=== PATIENT | male | born 1940 | race Native Hawaiian/Other Pacific Islander ===

== ENCOUNTER 2016-07-23 07:00 | Outpatient (CLI) | payer OTHER, MEDICARE ==
[~2016-07-23 07:00] MED LIST: ALEVE220 M1 OR; ASA LOW STR81 MG PO; DOXA2TAB PO; DUTA0.5C PO; FLUT0.05 NAS; LEVO0.08 PO; LOVASTATIN20 MG OR; MELOXICAM7.5 MG OR; MELOXICAM7.5 MG PO; NIASPAN500 MG PO; TRAMADL/APAP1 TAB OR
[2016-07-23 07:33] LABS: PLATELET COUNT 158 K/uL (142-355)
[2016-07-23 08:06] LABS: POTASSIUM 4.1 mmol/L (3.6-5.2); SODIUM 138 mmol/L (136-145)
== END 2016-07-23 19:04 | disposition home or self-care (01) ==
LOC: LAB 07:00
PROVIDERS: Internal Medicine
DX: Z01.818 Encounter for other preprocedural examination (principal); R74.8 Abnormal levels of other serum enzymes; R73.09 Other abnormal glucose; E03.9 Hypothyroidism, unspecified
CPT/HCPCS: 36415; 80053; 80061; 81000; 84439; 84443; 85027

== ENCOUNTER 2016-09-08 19:58 | Observation (INO) | payer OTHER, MEDICARE ==
[~2016-09-08] VITALS: Ht 177.8 cm; Wt 93.1 kg
[2016-09-08 20:11] VITALS: BP 151/79; TEMP 98.4
[2016-09-08 21:23] LABS: PLATELET COUNT 104 K/uL (142-355)
[2016-09-08 21:31] LABS: POTASSIUM 3.8 mmol/L (3.6-5.2); SODIUM 134 mmol/L (136-145)
[2016-09-08 23:20] VITALS: BP 156/80; TEMP 98.3; Ht 177.8 cm; Wt 93.1 kg
[2016-09-09 00:24] VITALS: BP 156/80; TEMP 98.3
[2016-09-09 07:59] VITALS: BP 152/81; TEMP 99.4
[2016-09-09 12:00] VITALS: BP 141/61; TEMP 98.3
== END 2016-09-09 14:12 | disposition home or self-care (01) ==
LOC: ED 19:58 → MED/SURG 22:00
PROVIDERS: ADMIT Emergency Medicine
DX: R10.84 Generalized abdominal pain (principal); R11.2 Nausea with vomiting, unspecified; K59.09 Other constipation; M17.11 Unilateral primary osteoarthritis, right knee; M25.561 Pain in right knee; M62.81 Muscle weakness (generalized)
CPT/HCPCS: 36415; 80053; 81000; 85027; 96360; 96372; 99220; 99283; G0378; J1650; J2405

== ENCOUNTER 2017-08-22 06:17 | Outpatient (CLI) | payer OTHER, MEDICARE ==
[2017-08-22 06:43] LABS: PLATELET COUNT 116 K/uL (142-355)
[2017-08-22 07:07] LABS: POTASSIUM 4.4 mmol/L (3.6-5.2)
== END 2017-08-22 21:53 | disposition home or self-care (01) ==
LOC: LABW 06:17
PROVIDERS: Physician Assistant
DX: E78.4 Other hyperlipidemia (principal); E03.8 Other specified hypothyroidism; I10 Essential (primary) hypertension; R73.09 Other abnormal glucose
CPT/HCPCS: 36415; 80053; 80061; 83036; 84439; 84443; 85027

== ENCOUNTER 2017-09-07 09:14 | Outpatient (CLI) | payer OTHER, MEDICARE | END 2017-09-07 19:26 | disposition home or self-care (01) | LOC: US 09:14 | DX: E80.6 Other disorders of bilirubin metabolism (principal) ==

== ENCOUNTER 2019-07-16 06:28 | Outpatient (CLI) | payer OTHER, MEDICARE ==
[2019-07-16 07:03] LABS: PLATELET COUNT 145 K/uL (142-355)
[2019-07-16 07:04] LABS: POTASSIUM 4.4 mmol/L (3.6-5.2)
== END 2019-07-16 19:33 | disposition home or self-care (01) ==
LOC: LAB 06:28
PROVIDERS: Internal Medicine
DX: I10 Essential (primary) hypertension (principal); E78.49 Other hyperlipidemia; E03.8 Other specified hypothyroidism
CPT/HCPCS: 36415; 80053; 80061; 81000; 84439; 84443; 85027

== ENCOUNTER 2020-02-26 06:58 | Outpatient (CLI) | payer OTHER, MEDICARE ==
[2020-02-26 08:19] LABS: POTASSIUM 4.1 mmol/L (3.6-5.2)
== END 2020-02-26 22:19 | disposition home or self-care (01) ==
LOC: LABW 06:58
PROVIDERS: Internal Medicine
DX: E03.8 Other specified hypothyroidism (principal); E78.49 Other hyperlipidemia
CPT/HCPCS: 36415; 80053; 80061; 84439; 84443

== ENCOUNTER 2020-08-31 14:19 | Outpatient (CLI) | payer OTHER, MEDICARE ==
[2020-08-31 14:44] LABS: PLATELET COUNT 109 K/uL (142-355)
[2020-08-31 15:06] LABS: POTASSIUM 4.2 mmol/L (3.6-5.2)
== END 2020-08-31 19:56 | disposition home or self-care (01) ==
LOC: LAB 14:19
PROVIDERS: ATTEND Internal Medicine
DX: Z00.00 Encounter for general adult medical examination without abnormal findings (principal); E78.49 Other hyperlipidemia; Z12.5 Encounter for screening for malignant neoplasm of prostate; E03.8 Other specified hypothyroidism; N40.0 Benign prostatic hyperplasia without lower urinary tract symptoms
CPT/HCPCS: 80053; 80061; 81000; 84153; 84439; 84443; 85027

== ENCOUNTER 2020-12-14 09:46 | Outpatient (CLI) | payer OTHER, MEDICARE | END 2020-12-14 22:39 | disposition home or self-care (01) | LOC: LABW 09:46 | PROVIDERS: ATTEND Internal Medicine | DX: B35.6 Tinea cruris (principal) | CPT/HCPCS: 36415; 80076 ==

== ENCOUNTER 2021-01-20 08:47 | Outpatient (CLI) | payer OTHER, MEDICARE ==
[2021-01-20 09:17] LABS: PLATELET COUNT 118 K/uL (142-355)
[2021-01-20 09:36] LABS: POTASSIUM 3.9 mmol/L (3.6-5.2)
== END 2021-01-20 20:34 | disposition home or self-care (01) ==
LOC: LABW 08:47
PROVIDERS: ATTEND Internal Medicine
DX: I10 Essential (primary) hypertension (principal); E03.8 Other specified hypothyroidism
CPT/HCPCS: 36415; 80053; 80061; 81000; 84439; 84443; 85027

== ENCOUNTER 2021-04-07 13:25 | Outpatient (CLI) | payer OTHER, MEDICARE | END 2021-04-07 20:25 | disposition home or self-care (01) | LOC: US 13:25 | PROVIDERS: ATTEND Internal Medicine | DX: I87.2 Venous insufficiency (chronic) (peripheral) (principal) ==

== ENCOUNTER 2021-04-22 10:07 | Emergency (ER) | payer OTHER, MEDICARE ==
[~2021-04-22] VITALS: Ht 172.7 cm; Wt 77.1 kg
[2021-04-22 10:17] VITALS: TEMP 97.6
[2021-04-22 11:13] LABS: PLATELET COUNT 120 K/uL (142-355)
[2021-04-22 11:33] LABS: PARTIAL THROMBOPLASTIN TIME 25.9 SECONDS (24.5-33.6)
[2021-04-22 13:07] VITALS: BP 184/82
== END 2021-04-22 13:49 | disposition short-term general hospital (02) ==
LOC: ED 10:07
PROVIDERS: Hospitalist
DX: I44.7 Left bundle-branch block, unspecified (principal); R00.1 Bradycardia, unspecified; R53.1 Weakness; R06.02 Shortness of breath; Z11.52 Encounter for screening for COVID-19
CPT/HCPCS: 36415; 80053; 81000; 82550; 83880; 84484; 85027; 85610; 85730; 87635; 93005; 96374; 99284; J1940; U0003

== ENCOUNTER 2021-11-18 06:21 | Outpatient (CLI) | payer OTHER, MEDICARE ==
[2021-11-18 06:38] LABS: PLATELET COUNT 131 K/uL (142-355)
[2021-11-18 08:35] LABS: POTASSIUM 3.9 mmol/L (3.6-5.2)
== END 2021-11-18 18:58 | disposition home or self-care (01) ==
LOC: LABW 06:21
PROVIDERS: ATTEND Internal Medicine
DX: E03.8 Other specified hypothyroidism (principal)
CPT/HCPCS: 36415; 80053; 80061; 84439; 84443; 85027

== ENCOUNTER 2022-05-25 12:35 | Outpatient (CLI) | payer OTHER, MEDICARE ==
[2022-05-25 12:49] LABS: PLATELET COUNT 148 K/uL (142-355)
[2022-05-25 13:13] LABS: POTASSIUM 4.3 mmol/L (3.6-5.2)
== END 2022-05-25 19:35 | disposition home or self-care (01) ==
LOC: LAB 12:35
PROVIDERS: ATTEND Internal Medicine
DX: I73.9 Peripheral vascular disease, unspecified (principal); E80.4 Gilbert syndrome; E03.8 Other specified hypothyroidism
CPT/HCPCS: 80053; 80061; 84439; 84443; 85027

== ENCOUNTER 2022-08-04 15:11 | Outpatient (CLI) | payer OTHER, MEDICARE | END 2022-08-04 20:59 | disposition home or self-care (01) | LOC: RAD 15:11 | PROVIDERS: ATTEND Internal Medicine | DX: M70.61 Trochanteric bursitis, right hip (principal); M70.62 Trochanteric bursitis, left hip ==